=== PATIENT | male | born 1990 | race Caucasian/White ===

== ENCOUNTER 2021-03-01 13:42 | Observation (INO) | payer OTHER ==
[~2021-03-01] VITALS: Ht 180.3 cm; Wt 122.5 kg
--- NOTE | ~2021-03-01 | OP ---
[address] [address] OPERATIVE REPORT Name: KYLEE MANDUJANO Room: [address] [place]#: [id number] Admission: 03/01/21 Attend Phys: Wm Devine MD Discharge: Date of : 88 Report #: [id number] THIS REPORT FOR: cc: FAM - No family physician/PCP FAM - No family physician/PCP Luciana Costello DO ~ DOC #: [id number] Luciana Costello DO DATE OF SURGERY: 03/02/2021 PREOPERATIVE DIAGNOSIS: Acute appendicitis. POSTOPERATIVE DIAGNOSIS: Acute appendicitis. PROCEDURE: Laparoscopic appendectomy. SURGEON: Dr. Luciana Costello. ANESTHESIA: General endotracheal. SPECIMENS: Appendix. ESTIMATED BLOOD LOSS: 10 mL INDICATIONS FOR PROCEDURE: The patient is a 30-year-old gentleman who presented to the ER with complaints of acute onset of right lower quadrant abdominal pain, which began earlier yesterday morning. The patient was found to have acute appendicitis on CT abdomen and pelvis. The patient was explained of the procedure, including risks, benefits and alternatives. All questions were answered to patient's satisfaction. Informed consent was obtained. DESCRIPTION OF PROCEDURE: The patient was brought back to the operating room and placed in supine position. General anesthesia was induced. SCDs were placed on bilateral extremities and then scheduled Zosyn was administered. Next, after a time-out was performed, the abdomen was prepped and draped in the usual sterile fashion and the abdomen was accessed via an infraumbilical Nedra trocar. The abdomen was insufflated to 15 mm of CO2. Next, under direct visualization, two 5-mm trocars were placed in the left lower quadrant as well as the suprapubic region. Next, the patient was then placed in Trendelenburg and air-planed to the left. The cecum was identified. The patient was noted to have a retrocecal appendix. The peritoneal adhesions were taken down using hook Bovie cautery. The appendix was then grasped and a window was created at the mesoappendix using a [place] dissector at the level of the cecal base. At this time, an Endo-BART blue staple load was then used to transect the appendix at the appendiceal base. At this time, due to the adhesions, Bovie cautery was used to mobilize the appendix more distally. It was the distal [place] [address] OPERATIVE REPORT Name: KYLEE MANDUJANO DEMI DARNELL Room: [address]#: [id number] Admission: 03/01/21 Attend Phys: Wm Devine MD Discharge: Date of : 88 Report #: [id number] that did appear to be inflamed and firm. Bovie cautery was used to dissect free the mesoappendix and the appendix was placed in an EndoCatch bag and brought out through the umbilical trocar site. The right lower quadrant was inspected. The mesoappendix was inspected. There was no visible bleeding. Appendiceal artery that was able to be identified. The area was suction irrigated until clear. The patient's blood pressure was confirmed with Anesthesia to be 135/82 and there was again no evidence of bleeding. A piece of 2 x 3 cm piece of Surgicel mesh was then placed within the right lower quadrant to ensure hemostasis. At this time, the abdomen was desufflated. The 5 mm trocars were removed, noting excellent hemostasis at the anterior abdominal wall. The umbilical trocar was removed. The fascia was closed with a [id number] 0 Vicryl stitch. Local anesthetic was infiltrated into all surgical sites as well as the umbilical fascia. The skin was then closed with 4-0 Monocryl in a subcuticular manner and Dermabond was applied for sterile dressing. All sponge and instrument count was reported as correct at the end of the case. The patient tolerated the procedure well without any complications. He was awakened from anesthesia in the operating room and taken to the PACU in stable condition for further recovery. Luciana Costello DO CRF/[facility]ARD By: [id number] Costello DO /nt
[~2021-03-01 13:42] MED LIST: ADDERALL 30 MG30 MG; HYDROCODONE-AP1 EAC6 PO; IBUPROFEN 800800 M1 PO
[2021-03-01 13:52] VITALS: BP 168/109
[2021-03-01 14:19] LABS: ABSOLUTE BASOPHILS 0.1 thou/uL (0.0-0.2); ABSOLUTE EOSINOPHILS 0.1 thou/uL (0.0-0.7); ABSOLUTE LYMPHOCYTES 2.4 thou/uL (0.8-5.3); ABSOLUTE NEUTROPHILS 11.8 thou/uL (1.6-8.1); BASOPHILS 0.7 %; EOSINOPHILS 0.9 %; HEMATOCRIT 48.6 % (42.0-52.0); LYMPHOCYTES 15.6 %; MCH 31.3 pg (26.0-34.0); MCHC 35.1 g/dL (28.0-37.0); MCV 89.2 fL (80.0-100.0); MONOCYTES 6.2 %; MPV 7.9 fl. (7.2-11.1); NUCLEATED RBCS 0 /100WBC; PLATELET COUNT* 186 thou/uL (150-400); POLYS 76.6 %; RBC 5.45 mil/uL (4.50-6.00); WBC 15.4 thou/uL (4.0-11.0)
[2021-03-01 14:24] LABS: URINE BILIRUBIN NEGATIVE (Negative); URINE BLOOD NEGATIVE (Negative); URINE CLARITY CLEAR; URINE COLOR YELLOW; URINE GLUCOSE-RANDOM 1+ (Negative); URINE KETONES NEGATIVE (Negative); URINE LEUKOCYTES-REFLEX NEGATIVE (Negative); URINE NITRITE-REFLEX NEGATIVE (Negative); URINE PROTEIN NEGATIVE (Negative); URINE SPECIFIC GRAVITY 1.025 (1.005-1.030); URINE UROBILINOGEN 0.2 E.U./dl (0.2-1.0)
[2021-03-01 14:28] LABS: CALCIUM 8.8 mg/dL (8.5-10.1); POTASSIUM 4.1 mmol/L (3.5-5.1)
[2021-03-01 14:33] LABS: TOTAL BILIRUBIN 0.4 mg/dL (<0.1-1.0); TOTAL PROTEIN 7.4 g/dL (6.4-8.2)
--- NOTE | 2021-03-01 17:30 | NUR ---
ADMISSION ORDERS ON HOLD PER DR BLACKWOOD ORDERS UNTIL CONTINUES POC TO CONFIRM ADMISSION PROCESS. [id number] ORDERS TO CONTINUE ADMISSION ORDERS AT 1725
[2021-03-01 18:19] VITALS: BP 137/86
[2021-03-01 21:08] VITALS: BP 136/84
[2021-03-02 06:10] LABS: ABSOLUTE BASOPHILS 0.1 thou/uL (0.0-0.2); ABSOLUTE EOSINOPHILS 0.2 thou/uL (0.0-0.7); ABSOLUTE LYMPHOCYTES 2.9 thou/uL (0.8-5.3); ABSOLUTE MONOCYTES 0.9 thou/uL (0.0-1.2); ABSOLUTE NEUTROPHILS 6.5 thou/uL (1.6-8.1); BASOPHILS 0.6 %; EOSINOPHILS 2.1 %; HEMATOCRIT 45.7 % (42.0-52.0); HEMOGLOBIN 16.1 gm/dL (14.0-18.0); LYMPHOCYTES 27.7 %; MCH 31.3 pg (26.0-34.0); MCHC 35.2 g/dL (28.0-37.0); MCV 89.1 fL (80.0-100.0); MONOCYTES 8.6 %; MPV 8.2 fl. (7.2-11.1); NUCLEATED RBCS 0 /100WBC; PLATELET COUNT* 170 thou/uL (150-400); RBC 5.13 mil/uL (4.50-6.00); RDW-CV 13.1 % (10.5-14.5); WBC 10.6 thou/uL (4.0-11.0)
[2021-03-02 06:16] LABS: CALCIUM 8.4 mg/dL (8.5-10.1); CREATININE 1.1 mg/dL (0.6-1.3)
[2021-03-02 08:00] VITALS: BP 118/82
--- NOTE | 2021-03-02 13:06 | NUR ---
THIS NURSE AGREES WITH ASSESSMENT
[2021-03-02 15:00] VITALS: BP 146/73
[2021-03-02 16:44] VITALS: BP 131/84
[2021-03-02] MEDS ORDERED: IBUPROFEN 800800 M1 PO (17:12)
[2021-03-02] MEDS ORDERED: NORCO5 PO (17:13)
[2021-03-02 17:29] VITALS: BP 131/84
[2021-03-02 17:31] VITALS: BP 131/84
--- NOTE | 2021-03-02 18:04 | NUR ---
PATIENT DISCHARGED AT THIS TIME VIA WHEELCHAIR ACCOMPANIED BY NURSE TECH TO PRIVATE VEHICLE. IV DC'D, SITE COVERED WITH COTTON BALL AND BANDAID, PATIENT TOLERATED WITHOUT DIFFICULTIES. INCISION SITES TO ABDOMEN WITH DERMABOND INTACT. DISCHARGE INSTRUCTIONS REVIEWED AT THIS TIME, PATIENT ACDKNOLWLEDGE UNDERSTANDING. ALL QUESTIONS AND CONCERNS ADDRESSED.
[2021-03-03 02:06] LABS: GLYCOHEMOGLOBIN (HGB A1C) 5.5 % (4.8-5.6)
== END 2021-03-02 18:08 | disposition home or self-care (01) ==
LOC: M.ERS 13:42 → M.TBA-ER 16:04 → M.ORTHSURG 17:50
PROVIDERS: Nurse Practitioner Family; ADMIT Internal Medicine; ATTEND Internal Medicine
DX: K35.80 Unspecified acute appendicitis (principal); Z20.822 Contact with and (suspected) exposure to COVID-19; F90.9 Attention-deficit hyperactivity disorder, unspecified type; E66.9 Obesity, unspecified; R73.9 Hyperglycemia, unspecified; F17.210 Nicotine dependence, cigarettes, uncomplicated; Z79.899 Other long term (current) drug therapy; Z68.37 Body mass index [BMI] 37.0-37.9, adult